=== PATIENT | female | born 2000 | race Two or more races ===

== ENCOUNTER 2024-05-06 12:52 | Outpatient (REF) | payer MEDICAID, SELFPAY ==
--- OUTSIDE RECORDS SUMMARY | 2024-05-06 13:19 | XMS_ITS | Encounter Summary ---
Author Organization [facility] Address [address] [place] [address] Phone Care Team Providers Care Waxer Name Role Phone Becky Larkin MD Primary Care Provider [phone] Encounter Details Date Type Department Care Team (Late st Contact Info) Description 10/29/2009 Documentation EM Family Medicine [address] [place], [place] [id number] Family Medicine, Physician [address] [place] [address] Social History Tobacco Use Types Packs/Day Years Used Date Smoking Tobacco: Never Assessed Comments Unknown Sex and Gender Information Value Date Recorded Sex Assigned at Female 06/14/2021 2:39 PM EDT Legal Sex Female 5:09 PM EDT Gender Identity Female 06/14/2021 2:39 PM EDT Sexual Orientation Not on file documented as of this encounter Plan of Treatment Not on file documented as of this encounter Visit Diagnoses Not on filedocumented in this encounter Care Teams Waxer Relationship Specialty Start Date End Date Becky Larkin MD [address] [place] [id number] PCP - General Pediatrics 04/04/20 08/27/22 documented as of this encounter
--- OUTSIDE RECORDS SUMMARY | 2024-05-06 13:20 | XMS_ITS | Encounter Summary ---
Author Organization [facility] Address [address] [place] [address] Phone Care Team Providers Care Materials Manager Name Role Phone Becky Larkin MD Primary Care Provider [phone] Encounter Details Date Type Department Care Team (Late st Contact Info) Description 11/06/2016 Conversion Encounter [facility] [place] [address] [place] [address] Social History Tobacco Use Types Packs/Day Years Used Date Smoking Tobacco: Never Comments:Never smoker Comments Unknown Sex and Gender Information Value Date Recorded Sex Assigned at Female 06/14/2021 2:39 PM EDT Legal Sex Female 5:09 PM EDT Gender Identity Female 06/14/2021 2:39 PM EDT Sexual Orientation Not on file documented as of this encounter Plan of Treatment Not on file documented as of this encounter Visit Diagnoses Not on filedocumented in this encounter Care Teams Materials Manager Relationship Specialty Start Date End Date Becky Larkin MD [address] [place] [address] PCP - General Pediatrics 04/04/20 08/27/22 documented as of this encounter
--- OUTSIDE RECORDS SUMMARY | 2024-05-06 13:20 | XMS_ITS | Clinical Summary ---
Author Organization [facility] [employer] Address [address] [place] [address] [address] [place] [address] Care Team Providers Care Room Inspector Name Role Phone Name, Matty BROWER Primary Care Provider [phone] Allergies No known active allergies Medications hydrocortisone 1 % ointmentIndicat ions:Rash Apply topically 2 times daily. 56 g 3 4 Active clindamycin (Cleocin T) 1 % lotion Apply topically 2 times daily. 60 mL 5 4 03/14/20 25 Active melatonin 5 MG tablet Take 1 tablet (5 mg) by mouth at bedtime. 30 tablet 3 4 03/14/20 25 Active Active Problems Problem Noted Date Diagnosed Date Iron deficiency anemia secon poornima to inadequate dietary iron intake 06/16/2021 Obstructive sleep apnea 09/24/2016 Overview (03/14/2024): ASHLIE persisted after T&A, now on CPAP - successful intervention. Uses it every night. Dr Maldonado follows- 01/08 SO CPAP mouthpiece broken, no using, hasn't replaced. Calvin will help with this Hidradenitis suppurativa 07/15/2013 Class 3 severe obesity due t o excess calories without serious comorbidity with body mass index (BMI) of 40.0 to 44.9 in adult 08/31/2009 Trisomy 21 08/31/2009 Overview (03/14/2024): Referred to developmental medicine for neuropsych eval - need to help clarify cognitive ability, capacity for independent adult functioning. Encounters Date Type Department Care Team Description 03/30/2024 Patient Outreach [facility] [address] [place] [address] NameMatty MD 03/30/2024 Patient Outreach [address] [address] Matty Katz MD Care Coordination ([facility] Marianela Gautam telephone call outreach) 03/14/2024 2:00 PM EST Office Visit [address] [address] Matty Katz MD Class 3 severe obesity due to excess calories without serious comorbidity with body mass index (BMI) of 40.0 to 44.9 in adult ([facility]) (Primary Dx); Rash; Health care maintenance; Screening for diabetes mellitus; Screening for cholesterol level; Hidradenitis suppurativa; Insomnia, unspecified type; ASHLIE (obstructive sleep apnea) 03/11/2024 Patient Outreach [address] [address] Marianela Gautam Care Coordination ([facility] Marianela Gautam telephone call outreach) 03/04/2024 Patient Outreach [address] [address] Marianela Gautam Care Coordination ([facility] Marianela Gautam telephone call outreach) 03/03/2024 Patient Outreach [address] [address] Matty Katz MD Pre-visit Planning (SDOH screening positive and Tobacco screening negative) from Last 3 Months Immunizations Name Administration Dates Next Due DTP 10/02/2004, 3,11/01/2001,01/14,2000 HPV, Quadrivalent 07/15/2013,11/10/2011,09/09/19 12 Hep A, ped/adol, 2 dose 07/15/2013,09/06/2010 Hep B, Adolescent or Pediatric 2000,2000,2000 Hib (HbO) 11/01/2001, 1,2000,04/09 IPV 10/02/2004, 1,2000,04/09 Influenza injectable quadriv alent preservative free 06/14/2021,12/03/2019,01/19/2019,01/08,02/11/2016 Influenza, Split (incl. shaun fied surface antigen) 12/16/2011,12/31/2010,03/01/2010 Influenza, seasonal, injecta ble, preservative free 03/14/2024 MMR 11/01/2001,07/01/2001 Meningococcal B, Recombinant 01/19/2019,01/09/20 18 Meningococcal MCV4P [id number] 09/24/2016,09/09/19 12 Tdap 03/14/2024,09/09/2011 Varicella 08/31/2009,06/28/2002 Family History Medical History Relation Name Comments Diabetes Mother's Brother Diabetes Mother's Sister Relation Name Status Comments Mother's Brother Mother's Sister Social History Tobacco Use Types Packs/Day Years Used Date Smoking Tobacco: Never Smokeless Tobacco: Never Tobacco Cessation:Counseling Given: Not Answered Alcohol Use Standard Drinks/Week Comments Never 0 (1 standard drink = 0.6 oz pur e alcohol) Housing Stability Answer Date Recorded What is your housing situation today? I have basilkinsey luther 03/03/[address] you li ve. Do you have problems with any of the following? Pests such as bugs, ants, or mice 03/03/2024 Food Insecurity Answer Date Recorded Within the past 12 months, y ou worried that your food would run out before you got money to buy more: Never True 03/03/2024 Within the past 12 months,th e food you bought just didn't last and you didn't have enough money to get more: Never True 02/2024 Transportation Answer Date Recorded In the past 12 months, has l ack of transportation kept you from medical appts, meetings, work or from getting things needed for daily living? No 03/03/2024 Utilities Answer Date Recorded In the past 12 months, has t he electric, gas, oil or water company threatened to shut off services in your home? No 03/03/2024 Internet Access Answer Date Recorded Internet Access Q1 Yes 03/03/2024 Internet Access Q2 Not on file 03/03/2024 Comments Unknown Sex and Gender Information Value Date Recorded Sex Assigned at Female 01/20/2022 10:30 AM EDT Legal Sex Female 10:30 AM EDT Gender Identity Female 01/20/2022 10:30 AM EDT Sexual Orientation Straight 03/14/2024 1: 48 PM EST Last Filed Vital Signs Vital Sign Reading Time Taken Comments Blood Pressure 132/87 03/14/2024 2:10 PM EST Pulse 97 03/14/2024 2:10 PM EST Temperature 36.6 ??C (97.9 ??F) 03/14/2024 2:10 PM ES T Respiratory Rate 21 03/14/2024 2:10 PM EST Oxygen Saturation 100% 03/14/2024 2:10 PM EST Inhaled Oxygen Concentration - - Weight 106 kg (233 lb 12.8 oz) 03/14/2024 2:10 P M EST Height 149.9 cm (4' 11 ) 03/14/2024 2:10 PM EST Body Mass Index 47.22 03/14/2024 2:10 PM EST Plan of Treatment Upcoming Encounters Date Type Department Care Team (Late st Contact Info) Description 05/23/2024 10:00 AM EST Office Visit [address] [address] Name, MD Matty [address] [place] [id number] 05/31/2024 2:15 PM EDT Procedure Visit [address] [address] Sheila Live, ERIS [address] [place] [address] Health Maintenance Due Date Last Done Comments Depression Screening 2000 HIV Screening 2000 Lipid Panel 2000 Alcohol/Substance Use Screening 2012 Family Planning (PISQ) 01/28/2015 Hepatitis C Screening 01/28/2018 Pap Smear 01/28/2021 COVID-19 Vaccine ( season) 2023 SDOH Screening 03/03/2025 03/03/2024 Tobacco Screening 03/14/2025 03/14/2024 DTaP/Tdap/Td Vaccines (8 - Td or Tdap) 03/14/2034 03/14/2024, 09/09/2011, 10/02/2004, Additional history exists Zoster Vaccines (1 of 2) 01/28/2050 RSV Patients and Patients Aged 60 years or older (1 - 1-dose 75+ series) 01/28/2075 Hepatitis B Vaccines Completed 2000, 2000, 2000 HIB Vaccines Completed 11/01/2001, 12/22, 2000, Additional history exists IPV Vaccines Completed 10/02/2004, 12/22, 2000, Additional history exists HPV Vaccines Completed 07/15/2013, 10/22, 09/09/2011 Hepatitis A Vaccines Completed 07/15/2013, 09/07/19 11 Meningococcal Vaccine Completed 09/24/2016, 012 Influenza Vaccine Completed 03/14/2024, , 12/03/2019, Additional history exists Pneumococcal Vaccine: Pediatrics (0 to 5 Years) and At-Risk Patients (6 to 49) Years) Aged Out No longer eligible based on patient's age to complete this topic RSV under 20 months Aged Out No longe r eligible based on patient's age to complete this topic Rotavirus Vaccines Aged Out No longer eligible based on patient's age to complete this topic Insurance [facility] [address] [place] [address] Care Teams Room Inspector Relationship Specialty Start Date End Date Name, MD Matty [address] [place] [id number] PCP - General Internal Medicine 03/14/24
--- OUTSIDE RECORDS SUMMARY | 2024-05-06 13:20 | XMS_ITS | Encounter Summary ---
Author Organization [facility] Address [address] [place] [address] Phone Care Team Providers Care Curriculum Assistant Name Role Phone Becky Larkin MD Primary Care Provider [phone] Reason for Visit * Reason Comments Med Refill Encounter Details Date Type Department Care Team (Late st Contact Info) Description 04/21/2020 Refill [facility] [address] [place] [address] Becky Larkin MD [address] [place] [address] Hidradenitis suppurativa Social History Tobacco Use Types Packs/Day Years Used Date Smoking Tobacco: Never Comments:Never smoker Hunger/Food Answer Date Recorded In the last 12 months, did y ou or your family ever eat less than you felt you should because there wasn't enough money for food? No 04/06/2020 Stable Housing Answer Date Recorded Are you worried that in the next 2 months you may not have stable housing? No 04/06/2020 Transportation Concerns Answer Date Rec orded In the last 12 months, have you or your family ever had to go without healthcare because you didn't have a way to get there? No 04/06/2020 Hazards in Home Answer Date Recorded Think about the place you li ve. Do you have problems with any of the following? Pests (mice or roaches), mold, no/not working smoke detectors, water leaks, no window guards. Yes 2020 Financing Utilities Answer Date Recorde d In the last 12 months, has t he electric, gas, oil, or water company threatened to shut off your services in your home? No 04/06/2020 Safety at Home Answer Date Recorded Are you or your family worried about feeling saf e in your home? No 04/06/2020 Outside Support Answer Date Recorded Do you feel that you need mo re support from other people or programs to help you care for yourself or your family? No 04/06/2020 Understanding Health Concerns Answer Da te Recorded Do you need help understandi ng your or your child's healthcare needs (diagnosis, medications, plan, etc.)? No 04/06/2020 Financing Health Concerns Answer Date R ecorded In the last 12 months, was t here a time when your child needed to see a doctor or get medications or supplies but could not because of cost? No 04/06/2020 Missing School or Work Answer Date Augustus rded Did you or your child miss s chool or work because of a health problem that could have been avoided? No 04/06/2020 Comments No Sex and Gender Information Value Date Recorded Sex Assigned at Female 06/14/2021 2:39 PM EDT Legal Sex Female 5:09 PM EDT Gender Identity Female 06/14/2021 2:39 PM EDT Sexual Orientation Not on file documented as of this encounter Miscellaneous Notes * Telephone Encounter - Becky Larkin MD - 04/23/2020 11:57 AM EST Agree with triage. * Telephone Encounter - Corinna Pate MA - 04/21/2020 10:28 AM EST Pt has a pending derm apt on Thursday. Pt should have enough medication until then. [facility] can send atthat point. Refill for the Rifampin fyi to [facility]. Will declined and [facility] can address at the next derm apt. documented in this encounter Plan of Treatment Not on file documented as of this encounter Visit Diagnoses Diagnosis Hidradenitis suppurativa Hidradenitis documented in this encounter Care Teams Curriculum Assistant Relationship Specialty Start Date End Date Becky Larkin MD [address] [place] [id number] PCP - General Pediatrics 04/04/20 08/27/22 documented as of this encounter
--- OUTSIDE RECORDS SUMMARY | 2024-05-06 13:20 | XMS_ITS | Clinical Summary ---
Author Organization [facility] Address [address] [place] [address] Phone Support Name Relationship Address Phone Barry Pressley Father [address] [place] [address] Unavailable Care Team Providers Care Expanded Duty Dental Assistant Name Role Phone Unavailable Primary Care Provider Unavailabl e Allergies No known active allergies Medications hydrocortisone 2.5 % ointmentIndicati ons:Angular cheilitis Apply topically 2 (two) times a day as needed for rash. 20 g 2 0 Active Additional Information Patient not taking.Reported on 06/14/2021 benzoyl peroxide (benzoyl peroxide) 5 % external liquidIndication s:Hidradenitis suppurativa Wash affected areas daily. 142 g 12 2 Active Active Problems Problem Noted Date Diagnosed Date Iron deficiency anemia asaf lugoy to inadequate dietary iron intake 06/16/2021 Assessment & Plan (06/16/2021 8:47 PM EDT): Labs remarkable only for iron deficiency anemia. Encouraged iron-rich foods. Sent rx for multivitamin with iron daily. Counseling and coordination of care 01/27/2019 Obstructive sleep apnea 09/24/2016 Overview (01/19/2019): ASHLIE persisted after T&A, now on CPAP - successful intervention. Uses it every night. Dr Maldonado follows- 01/08 SO CPAP mouthpiece broken, no using, hasn't replaced. Calvin will help with this Assessment & Plan (06/16/2021 8:16 PM EDT): Once again, Huber's mask broke. This has been the case every time we see her. [facility] [place] Calvin Chavez will assist with getting a new mask. Assessment & Plan (04/06/2020 3:37 PM EST): Mask broke again 3 weeks ago. Needs help getting a new one - [facility] [place] Calvin will help with this. Hidradenitis suppurativa 07/15/2013 Assessment & Plan (06/16/2021 8:16 PM EDT): Currently with recurrence of lesions, especially at pannus and groin. Her last flare resolved with combination abx - Clindamycin and Rifampin. Sent rx for a 3 week course of both. Follow up here with derm clinic at next available. Will need a future follow-up option when she turns 22. Class 3 severe obesity due t o excess calories without serious comorbidity with body mass index (BMI) of 40.0 to 44.9 in adult 08/31/2009 Assessment & Plan (06/16/2021 8:14 PM EDT): Huber is not interested in exercising or changing her eating habits. We discussed it anyway. Assessment & Plan (04/06/2020 10:15 PM EST): Discussed exercise and nutrition. She politely declines both. Reluctantly, she would consider exercising with a smartphone vivek. Trisomy 21 08/31/2009 Overview (04/06/2020): Referred to developmental medicine for neuropsych eval - need to help clarify cognitive ability, capacity for independent adult functioning. Assessment & Plan (06/16/2021 8:31 PM EDT): Referred last year to developmental medicine for neuropsych evaluation of her cognitive functioning, but it doesn't appear this was done. Will follow up on the status of this referral, as it will be very important for determination of guardianship. Assessment & Plan (04/06/2020 10:21 PM EST): Referred to developmental medicine for neuropsych eval - need to help clarify cognitive ability, capacity for independent adult functioning. Resolved Problems Problem Noted Date Diagnosed Date Resolved Date Need for case management follow-up 04/06/2020 06/14/2021 Overview (04/06/2020): Urine STI screen not done due to national shortage of tests. Pt asymptomatic. Will do test when available or at next well visit. Assessment & Plan (04/06/2020 3:23 PM EST): Urine STI screen not done due to national shortage of tests. Pt asymptomatic. Will do test when available or at next well visit. Mild intermittent asthma without complication 09/01/19 10 06/14/2021 Overview (01/19/2019): Symptom free x years - SO 01/08 Encounters Date Type Department Care Team Description 03/31/2024 Telephone [facility] - [address] [address] Cheyenne Hull MD from Last 3 Months Immunizations Immunization Administration Dates Next Due DTP 10/02/2004, 3,11/01/2001,01/14,2000 HPV, Quadrivalent 07/15/2013,11/10/2011,09/09/19 12 Hep A, ped/adol 07/15/2013,09/06/2010 Hep B, ped/adol 2000,2000,2000 Hib (HbOC) 11/01/2001, 1,2000,04/09 IPV 10/02/2004, 1,2000,04/09 Influenza Split 12/16/2011,12/31/2010,03/01/2010 Influenza, injectable, quadr ivalent, preservative free 06/14/2021,12/03/2019,01/19/2019,01/08,02/11/2016 MMR 11/01/2001,07/01/2001 Meningococcal B Trumenba 01/19/2019,01/08/2018 Meningococcal Conj (Menactra) MCV4P 09/24/2016,0 09/09/2011 Tdap 09/09/2011 Varicella 08/31/2009,06/28/2002 Family History Relation Name Status Comments Father Tim Alive stepdad: Alive and well Mother Magi Alive Mother: Asthma, Migraines Paternal Grandfather Paterna l grandfather: Diabetes mellitus, Hyperlipidemia Sister Aolanis Alive Sister: Asthma Social History Tobacco Use Types Packs/Day Years Used Date Smoking Tobacco: Never Comments:Never smoker Alcohol Use Standard Drinks/Week Comments Never 0 (1 standard drink = 0.6 oz pur e alcohol) Hunger/Food Answer Date Recorded In the last 12 months, did y ou or your family ever eat less than you felt you should because there wasn't enough money for food? No 06/14/2021 Stable Housing Answer Date Recorded Are you worried that in the next 2 months you may not have stable housing? No 06/14/2021 Transportation Concerns Answer Date Rec orded In the last 12 months, have you or your family ever had to go without healthcare because you didn't have a way to get there? No 06/14/2021 Hazards in Home Answer Date Recorded Think about the place you li ve. Do you have problems with any of the following? Pests (mice or roaches), mold, no/not working smoke detectors, water leaks, no window guards. No 2021 Financing Utilities Answer Date Recorde d In the last 12 months, has t he electric, gas, oil, or water company threatened to shut off your services in your home? No 06/14/2021 Safety at Home Answer Date Recorded Are you or your family worried about feeling saf e in your home? No 06/14/2021 Outside Support Answer Date Recorded Do you feel that you need mo re support from other people or programs to help you care for yourself or your family? No 06/14/2021 Understanding Health Concerns Answer Da te Recorded Do you need help understandi ng your or your child's healthcare needs (diagnosis, medications, plan, etc.)? No 06/14/2021 Financing Health Concerns Answer Date R ecorded In the last 12 months, was t here a time when your child needed to see a doctor or get medications or supplies but could not because of cost? No 06/14/2021 Missing School or Work Answer Date Augustus rded Did you or your child miss s chool or work because of a health problem that could have been avoided? No 06/14/2021 Comments No Sex and Gender Information Value Date Recorded Sex Assigned at Female 06/14/2021 2:39 PM EDT Legal Sex Female 5:09 PM EDT Gender Identity Female 06/14/2021 2:39 PM EDT Sexual Orientation Not on file Last Filed Vital Signs Vital Sign Reading Time Taken Comments Blood Pressure 115/78 06/14/2021 1:23 PM EDT Pulse 96 06/14/2021 1:23 PM EDT Temperature 36.2 ??C (97.1 ??F) 06/14/2021 1:23 PM ED T Respiratory Rate 24 04/19/2019 6:20 PM EST Oxygen Saturation 99% 02/18/2010 12:00 AM EST Inhaled Oxygen Concentration - - Weight 93.7 kg (206 lb 9.6 oz) 06/14/2021 1:23 P M EDT Height 146.1 cm (4' 9.5 ) 06/14/2021 1:23 PM EDT Body Mass Index 43.93 06/14/2021 1:23 PM EDT Plan of Treatment Health Maintenance Due Date Last Done Comments COVID-19 Vaccine ( season) 2023 DTaP,Tdap,and Td Vaccines (8 - Td or Tdap) 03/14/2034 03/14/2024, 09/09/2011, 10/02/2004, Additional history exists Hepatitis B Vaccines Completed 2000, 2000, 2000 HIB Vaccines Completed 11/01/2001, 12/22, 2000, Additional history exists MMR Vaccines Completed 11/01/2001, 07/01/2001 IPV Vaccines Completed 10/02/2004, 12/22, 2000, Additional history exists Varicella Vaccines Completed 08/31/2009, 06/28/2002 HPV Vaccines Completed 07/15/2013, 10/22, 09/09/2011 Hepatitis A Vaccines Completed 07/15/2013, 09/07/19 11 Meningococcal Vaccine Completed 09/24/2016, 012 Men B Vaccine Completed 01/19/2019, 01/08/2018 Influenza Vaccines Completed 03/14/2024, 0 06/14/2021, 12/03/2019, Additional history exists Pneumococcal Vaccine Aged Out No long er eligible based on patient's age to complete this topic Procedures * Due to [place] Augment law, this organization might not be sharing sensitive test results. Procedure Name Priority Date/Time Associated Diagnosis Comments CHLAMYDIA AND GONORRHEA, AMPLIFIED Routine 06/14/2021 2:31 PM EDT Well adult exam from Last 3 Months or Most Recently Relevant to Health Maintenance Results * Due to [place] Augment law, this organization might not be sharing sensitive test results. * Chlamydia and Gonorrhoea, Amplified (06/14/2021 2:31 PM EDT) Chlamydia Trachomatis, DNA Probe NEGATIVE (NEG) [facility] Comment: No Chlamydia Trachomatis RNA detected in this patient's sample ? (REFERENCE RANGE/NORMAL VALUE: NOT DETECTED) ? Note: This test uses student counsellor- mediated amplification method to detect rRNA from C. Trachomatis URINE GC AMP PROBE NEGATIVE (NEG) [facility] Comment: No Neisseria Gonorrhoeae RNA detected in this patient's sample ? (REFERENCE RANGE/NORMAL VALUE: NOT DETECTED) ? NOTE: This test uses student counsellor-mediated amplification method to detect rRNA from N.Gonorrhoeae. A negative result does not preclude infection. In the case of a negative urine result, testing of an endocervical(female) or urethral (male) specimen is recommended if there is high clinical suspicion of infection. Due to very high sensitivity of Nucleic Acid Amplification Test, false positive results may occur. Therefore, specimen handling is extremely important. In patients in whom the disease is unlikely, additional sample for testing should be considered after an initial positive result. The performance characteristics of this test have not been evaluated in children. The Aptima Combo2 assay is not intended for the evaluation of suspected sexual abuse or for other medico-legal indications. The ordering provider should assess if the patient had consensual sex without risk of sexual abuse. Consult the [facility] if needed. Contact phone number . Therapeutic failure or success cannot be determined with the Aptima Combo2 assay since nucleic acid may persist following appropriate antimicrobial therapy. The Centers for Disease Control and Prevention (CDC) recommends confirmatory retesting using culture or a different nucleic acid amplification test when positive results occur, if indicated. Testing performed or reported by [facility], a Service of [facility], [address], [place] [address] Les Mcarthur MD, Syrup Mixer [facility]# [id number] Urine (Urine) 06/14/2021 2:3 1 PM EDT 06/14/2021 9:58 PM EDT us Becky Larkin MD LAB MICROBIOLOGY - GENERAL ORDER AQUILES Final Result [facility] from Last 3 Months or Most Recently Relevant to Health Maintenance
--- OUTSIDE RECORDS SUMMARY | 2024-05-06 13:20 | XMS_ITS | Encounter Summary ---
Author Organization [facility] Address [address] [place] [address] Phone Care Team Providers Care Video Clerk Name Role Phone Becky Larkin MD Primary Care Provider Reason for Visit * Reason Comments Med Refill Encounter Details Date Type Department Care Team (Late st Contact Info) Description 03/13/2020 Refill [facility] [place] [address] [place] [address] Toni Giron MD [address] [place] [address] Hidradenitis suppurativa Social History Tobacco Use Types Packs/Day Years Used Date Smoking Tobacco: Never Comments:Never smoker Hunger/Food Answer Date Recorded No 12/17/2019 Stable Housing Answer Date Recorded Yes 12/17/2019 Transportation Concerns Answer Date Rec orded No 12/17/2019 Hazards in Home Answer Date Recorded No 02/02/2020 Financing Utilities Answer Date Recorde d No 02/02/2020 Safety at Home Answer Date Recorded Yes 02/02/2020 Outside Support Answer Date Recorded Yes 02/02/2020 Understanding Health Concerns Answer Da te Recorded Yes 02/02/2020 Financing Health Concerns Answer Date R ecorded No 02/02/2020 Missing School or Work Answer Date Augustus rded No 02/02/2020 Comments No Sex and Gender Information Value Date Recorded Sex Assigned at Female 06/14/2021 2:39 PM EDT Legal Sex Female 5:09 PM EDT Gender Identity Female 06/14/2021 2:39 PM EDT Sexual Orientation Not on file documented as of this encounter Miscellaneous Notes * Telephone Encounter - Becky Larkin MD - 03/14/2020 6:05 PM EST Noted. Will discuss at her [facility] in March 2020. * Telephone Encounter - Rebecca Villalpando MD - 03/14/2020 4:43 PM EST Chart reviewed, I have not seen Isheily. She was on minocycline last year for hydradenitis supporativa last year, prescribed by Dr. Giron with [facility]. Rx sent for 30 day supply without refills - she is seeing Dr. Larkin for her WCC in March, can discuss whether to refer to derm for other treatment as suggested last year. Dr. Larkin FY * Telephone Encounter - Lars Rea LPN - 03/13/2020 4:23 PM EST [facility] is requesting a refill on minocycline. Pt has a PE scheduled for 04/06/20. Spoke to pt's mom and she states that pt is developing the pimples under arms again and the minocycline they had was . documented in this encounter Plan of Treatment Not on file documented as of this encounter Visit Diagnoses Diagnosis Hidradenitis suppurativa Hidradenitis documented in this encounter Care Teams Video Clerk Relationship Specialty Start Date End Date Becky Larkin MD [address] [place] [phone] PCP - General Pediatrics 04/04/20 08/27/22 documented as of this encounter
--- OUTSIDE RECORDS SUMMARY | 2024-05-06 13:20 | XMS_ITS | Encounter Summary ---
Author Organization [facility] Address [address] [place] [address] Phone Care Team Providers Care Universal Grinder Set Up Operator Name Role Phone Becky Larkin MD Primary Care Provider [phone] Encounter Details Date Type Department Care Team (Late st Contact Info) Description 01/12/2018 Patient Outreach [facility] [address] [place] [address] Calvin Chavez [place] Social History Tobacco Use Types Packs/Day Years Used Date Smoking Tobacco: Never Comments:Never smoker Comments No Sex and Gender Information Value Date Recorded Sex Assigned at Female 06/14/2021 2:39 PM EDT Legal Sex Female 5:09 PM EDT Gender Identity Female 06/14/2021 2:39 PM EDT Sexual Orientation Not on file documented as of this encounter Plan of Treatment Not on file documented as of this encounter Visit Diagnoses Diagnosis Counseling and coordination of care documented in this encounter Care Teams Universal Grinder Set Up Operator Relationship Specialty Start Date End Date Becky Larkin MD [address] [place] [address] PCP - General Pediatrics 04/04/20 08/27/22 documented as of this encounter
--- OUTSIDE RECORDS SUMMARY | 2024-05-06 13:20 | XMS_ITS | Encounter Summary ---
Author Organization [facility] Address [address] [place] [address] Phone Care Team Providers Care Quantitative Strategy Analyst Name Role Phone Becky Larkin MD Primary Care Provider [phone] Encounter Details Date Type Department Care Team (Late st Contact Info) Description 02/01/2010 Documentation [facility] [address] [place], [place] [phone] Family Medicine, Physician [address] [place] [address] Social History Tobacco Use Types Packs/Day Years [...] on filedocumented in this encounter Care Teams Quantitative Strategy Analyst Relationship Specialty Start Date End Date Becky Larkin MD [address] [place] [phone] PCP - General Pediatrics 04/04/20 08/27/22 documented as of this encounter
--- OUTSIDE RECORDS SUMMARY | 2024-05-06 13:20 | XMS_ITS | Encounter Summary ---
Author Organization [facility] Address [address] [place] [address] Phone Care Team Providers Care Sewage Reticulation Drafting Officer Name Role Phone Becky Larkin MD Primary Care Provider [phone] Encounter Details Date Type Department Care Team (Late st Contact Info) Description 10/29/2009 Documentation [facility] [address] [place], [place] [phone] Family Medicine, Physician [address] [place] [address] Social History Tobacco Use Types Packs/Day Years [...] on filedocumented in this encounter Care Teams Sewage Reticulation Drafting Officer Relationship Specialty Start Date End Date Becky Larkin MD [address] [place] [phone] PCP - General Pediatrics 04/04/20 08/27/22 documented as of this encounter
--- OUTSIDE RECORDS SUMMARY | 2024-05-06 13:20 | XMS_ITS | Encounter Summary ---
Author Organization [facility] Address [address] [place] [address] Phone Care Team Providers Care Setter Molding And Coremaking Machines Name Role Phone Becky Larkin MD Primary Care Provider [phone] Encounter Details Date Type Department Care Team (Late st Contact Info) Description 10/29/2009 Documentation [facility] [address] [place], [place] [phone] Family Medicine, Physician [address] [place] [address] Social History Tobacco Use Types Packs/Day Years [...] on filedocumented in this encounter Care Teams Setter Molding And Coremaking Machines Relationship Specialty Start Date End Date Becky Larkin MD [address] [place] [phone] PCP - General Pediatrics 04/04/20 08/27/22 documented as of this encounter
--- OUTSIDE RECORDS SUMMARY | 2024-05-06 13:20 | XMS_ITS | Encounter Summary ---
Author Organization [facility] Address [address] [place] [address] Phone Care Team Providers Care Machine Molder Name Role Phone Becky Larkin MD Primary Care Provider [phone] Encounter Details Date Type Department Care Team (Late st Contact Info) Description 03/20/2010 Documentation [facility] [address] [place], [place] [phone] Family Medicine, Physician [address] [place] [address] Social History Tobacco Use Types Packs/Day Years [...] on filedocumented in this encounter Care Teams Machine Molder Relationship Specialty Start Date End Date Becky Larkin MD [address] [place] [address] PCP - General Pediatrics 04/04/20 08/27/22 documented as of this encounter
--- OUTSIDE RECORDS SUMMARY | 2024-05-06 13:20 | XMS_ITS | Encounter Summary ---
Author Organization [facility] Address [address] [place] [address] Phone Care Team Providers Care Combination Window Installer Name Role Phone Becky Larkin MD Primary Care Provider [phone] Encounter Details Date Type Department Care Team (Late st Contact Info) Description 11/26/2010 Documentation [facility] [address] [place], [place] [phone] Family Medicine, Physician [address] [place] [address] Social History Tobacco Use Types Packs/Day Years [...] on filedocumented in this encounter Care Teams Combination Window Installer Relationship Specialty Start Date End Date Becky Larkin MD [address] [place] [address] PCP - General Pediatrics 04/04/20 08/27/22 documented as of this encounter
--- OUTSIDE RECORDS SUMMARY | 2024-05-06 13:20 | XMS_ITS | Encounter Summary ---
Author Organization [facility] Address [address] [place] [address] Phone Care Team Providers Care Tool Crib Lead Name Role Phone Becky Larkin MD Primary Care Provider [phone] Encounter Details Date Type Department Care Team (Late st Contact Info) Description 05/16/2011 Documentation [facility] [place] [place] Family Medicine [address] [place], [place] [phone] Family Medicine, Physician [address] [place] [address] Social History Tobacco Use Types Packs/Day Years [...] on filedocumented in this encounter Care Teams Tool Crib Lead Relationship Specialty Start Date End Date Becky Larkin MD [address] [place] [phone] PCP - General Pediatrics 04/04/20 08/27/22 documented as of this encounter
--- OUTSIDE RECORDS SUMMARY | 2024-05-06 13:20 | XMS_ITS | Encounter Summary ---
Author Organization [facility] Address [address] [place] [address] Phone Care Team Providers Care Sleeve Setter Safety Stitch Name Role Phone Becky Larkin MD Primary Care Provider [phone] Reason for Visit * Reason Comments Med Refill Encounter Details Date Type Department Care Team (Late st Contact Info) Description 04/15/2020 Refill [facility] [place] [address] [place] [address] Rebecca Villalpando MD [address] [place] [address] Hidradenitis suppurativa Social History Tobacco Use Types [...] encounter Miscellaneous Notes * Telephone Encounter - Corinna Pate MA - 04/15/2020 12:11 PM EST Refill for Minocycline Message to PCP EK Pt has a derm visit in two weeks Pt on Rifampin and Clindamycin too for Hidradenitis suppurative- see visit 04/06/2020 Not sure if they replace the Minocycline. documented in this encounter Plan of Treatment Not on file documented as of this encounter Visit Diagnoses Diagnosis Hidradenitis suppurativa Hidradenitis documented in this encounter Care Teams Sleeve Setter Safety Stitch Relationship Specialty Start Date End Date Becky Larkin MD [address] [place] [address] PCP - General Pediatrics 04/04/20 08/27/22 documented as of this encounter
--- OUTSIDE RECORDS SUMMARY | 2024-05-06 13:20 | XMS_ITS | Encounter Summary ---
Author Organization [facility] Address [address] [place] [address] Phone Care Team Providers Care Whipped Topping Supervisor Name Role Phone Becky Larkin MD Primary Care Provider [phone] Encounter Details Date Type Department Care Team (Late st Contact Info) Description 12/23/2011 Documentation [facility] [place] Family [place] [address] [place], [place] [phone] Family Medicine, Physician [address] [place] [address] Social History Tobacco Use Types Packs/Day Years [...] on filedocumented in this encounter Care Teams Whipped Topping Supervisor Relationship Specialty Start Date End Date Becky Larkin MD [address] [place] [phone] PCP - General Pediatrics 04/04/20 08/27/22 documented as of this encounter
[2024-05-06 16:21] LABS: MANUAL DIFF FLAG NO
[2024-05-06 16:27] LABS: Basophils Percent Auto 0.8 % (0-2); Eosinophils Percent Auto 0.4 % (0-4); Hematocrit 39.8 % (37.0-47.0); Hemoglobin 12.9 g/dl (12.0-16.0); Imm Gran Abs Auto 0.01 X10*3/uL (0.00-0.03); Imm Gran Pct Auto 0.2 % (0.0-0.4); Lymphocytes Absolute Auto 2.1 X10*3/uL (1.2-4.9); Lymphocytes Percent Auto 42.4 % (20-40); Mean Corpuscular HGB Conc 32.4 g/dl (31.0-35.0); Mean Corpuscular Hemoglobin 28.9 pg (27.0-33.0); Mean Corpuscular Volume 89.2 fL (80.0-98.0); Mean Platelet Volume 9.7 fL (9.4-12.3); Monocytes Absolute Auto 0.6 X10*3/uL (0.1-1.2); Monocytes Percent Auto 11.5 % (2-11); Neutrophils Absolute Auto 2.3 x10*3/uL (2.0-8.3); Neutrophils Percent Auto 44.7 % (45-73); Platelet Count 377 X10*3/uL (160-400); Red Blood Count 4.46 X10*6/uL (4.20-5.50); Red Cell Distribution Width 14.8 % (11.0-16.0); White Blood Count 5.1 X10*3/uL (4.8-10.8)
[2024-05-06 16:35] LABS: Estimated Average Glucose 111 mg/dL; Hemoglobin A1C 124.2998 umol/L; Hemoglobin A1c % 5.5 % (<6.0); Total Hemoglobin (HGBA1C) 3412.9698 umol/L
[2024-05-06 16:51] LABS: Alanine Aminotransferase 27 U/L (0-31); Alkaline Phosphatase 123 U/L (39-117); Anion Gap 15 (12-20); Aspartate Amino Transferase 22 U/L (5-31); Bilirubin Total 0.2 mg/dL (0.0-1.0); Blood Urea Nitrogen 11 mg/dL (9-16); Calcium 9.3 mg/dL (8.4-10.2); Carbon Dioxide 21 mmol/L (22-29); Chloride 106 mmol/L (96-108); Cholesterol 138 mg/dL (<200); Estimated Glomerular Filt Rate > 60; Glucose Random 91 mg/dL (60-115); HDL Cholesterol 40 mg/dL (>40); LDL Cholesterol Calculated 74 mg/dL (<100); Potassium 4.1 mmol/L (3.3-5.1); Sodium 138 mmol/L (135-145); Total Protein 8.6 g/dL (6.5-8.0); Triglycerides 120 mg/dL (<150)
[2024-05-06 16:58] LABS: TSH reflex Free T4 1.87 uIU/mL (0.32-4.0)
== END 2024-05-06 12:53 | disposition home or self-care (01) ==
LOC: HO.HHCL 12:52
PROVIDERS: Visit Provider Internal Medicine Geriatric Medicine
DX: Z00.00 Encounter for general adult medical examination without abnormal findings (principal); Z13.1 Encounter for screening for diabetes mellitus; Z68.41 Body mass index [BMI] 40.0-44.9, adult; E66.01 Morbid (severe) obesity due to excess calories; E66.813 Obesity, class 3; Z13.220 Encounter for screening for lipoid disorders
CPT/HCPCS: 36415; 80053; 80061; 83036; 84443; 85025